=== PATIENT | female | born 1990 | race Caucasian/White ===

== ENCOUNTER 2017-10-03 22:53 | Inpatient (IN) | payer MEDICAID ==
[~2017-10-03] VITALS: Ht 152.4 cm; Wt 60.8 kg
--- NOTE | 2017-10-03 23:11 | NUR ---
PT BIB AMBULANCE. PT MOVED TO BED AND MADE COMFORTABLE. PT AAOX4 WITH C/O SEEING HALLUCINATIONS S/P EATING A THC BROWNIE. PT NOTED TO HAVE INVOLUNTARY SHAKING/JERKING.
--- NOTE | 2017-10-03 23:23 | NUR ---
6MG ADONSINE PUSHED RAPIDLY WITH DR STOUT AT BEDSIDE. PT'S HR CONVERTED FOR APPROXIMATELY 10 SECONDS THEN RETURNED TO 160'S.
--- NOTE | 2017-10-03 23:31 | NUR ---
12MG IVP ADENOSINE PUSHED RAPIDLY WITH PT CONVERTING TO NSR FOR APPROXIMATLY 40 SEC THEN PT RETURNED TO 130'S.
[2017-10-03 23:42] LABS: BASOPHIL % 0.6 % (0-2); PLATELET COUNT 228 x10^3mcL (130-400); RED CELL DISTRIBUTION WIDTH 12.6 % (11.5-14.5)
--- NOTE | 2017-10-03 23:45 | NUR ---
PT WITH EPISODE OF N/V WITH LARGE AMOUNT OF EMESIS.
[2017-10-03 23:46] LABS: CALCIUM 8.2 mg/dL (8.5-10.1); CARBON DIOXIDE 25.2 mmol/L (21-32); CHLORIDE SERUM 106 mmol/L (98-107); CREATININE SERUM 0.7 mg/dL (0.6-1.0); GFR1 > 60 mL/min; GLUCOSE SERUM 171 mg/dL (74-106); POTASSIUM SERUM 3.4 mmol/L (3.5-5.1); SODIUM SERUM 140 mmol/L (136-145)
[2017-10-04] LABS: ALBUMIN 3.6 g/dL (3.4-5.0); ALKALINE PHOSPHATASE 63 U/L (46-116); ALT/SGPT 22 U/L (14-59); AST/SGOT 13 U/L (15-37); BILIRUBIN TOTAL 0.2 mg/dL (0.20-1.00); FREE T4 1.05 ng/dL (0.76-1.46); TOTAL PROTEIN, SERUM 7.2 g/dL (6.4-8.2)
[2017-10-04 01:39] LABS: AMPHETAMINE QUAL UR NONE DETECTED (NEG <=1000)
--- NOTE | 2017-10-04 01:57 | NUR ---
PT RESTING IN BED WITH EYES CLOSED WITH NO SIGNS OF DISTRESS AT THIS TIME. VISITOR AT BEDSIDE.
--- NOTE | 2017-10-04 02:27 | NUR ---
RECEIVED REPORT FROM ELVIS VALDEZ. PT SLEEPING IN A POSITION OF COMFORT, EASY TO WAKE, RESP E/U, NO DISTRESS NOTED. PTS HR REMAINS IN THE 110'S. PT REMAINS CONNECTED TO CARDIORESP MONITORING AND CONNECTED TO DEFIB PADS. PT DENIES NEEDS AT THIS TIME.
--- NOTE | 2017-10-04 02:45 | NUR ---
PT AMBULATED TO AND FROM RESTROOM WITH THE ASSISTANCE OF THIS RN AND FRIEND WITH STEADY GAIT. PT RETURNED TO BED AND RECONNECTED TO CARDIORESP MONITORS WITHOUT INCIDENCE. PT STATES, "I FEEL MUCH BETTER".
[2017-10-04 04:45] LABS: microscopic required? NO
--- NOTE | 2017-10-04 04:46 | NUR ---
MED RESIDENT AT BEDSIDE UPDATING PT ON PLAN OF CARE.
[2017-10-04 04:59] LABS: urine erythrocyte NEGATIVE (NEGATIVE)
[2017-10-04 05:09] LABS: BASOPHIL % 0.4 % (0-2); PLATELET COUNT 233 x10^3mcL (130-400); RED CELL DISTRIBUTION WIDTH 13.1 % (11.5-14.5)
[2017-10-04 05:25] LABS: MAGNESIUM 2.6 mg/dL (1.8-2.4); PHOSPHOROUS 3.3 mg/dL (2.5-4.9)
[2017-10-04 05:26] LABS: CHOLESTEROL/HDL RATIO 2.6
[2017-10-04 05:30] LABS: CALCIUM 8.3 mg/dL (8.5-10.1); CHLORIDE SERUM 109 mmol/L (98-107); CREATININE SERUM 0.7 mg/dL (0.6-1.0); GFR1 > 60 mL/min; GLUCOSE SERUM 110 mg/dL (74-106); POTASSIUM SERUM 4.5 mmol/L (3.5-5.1); SODIUM SERUM 139 mmol/L (136-145)
--- NOTE | 2017-10-04 07:10 | NUR ---
REPORT CALLED TO JULIO VALDEZ TO ASSUME CARE OF PT POST TRANSFER TO TELE UNIT.
--- NOTE | 2017-10-04 08:05 | NUR ---
RECEIVED PATIENT FROM ED VIA GURNEY ACCOMPANIED BY ED NURSE AND FRIEND. PATIENT LETHARGIC, BUT OPENS EYES TO TACTILE STIMULI, UNABLE TO ANSWER QUESTIONS AT THIS TIME. PER PATIENTS FRIEND AT BEDSIDE, PATIENT ATE A BROWNIE THAT HAD MARIJUANA IN IT LAST NIGHT AND STARTED HAVING PALPITATIONS, ANXIETY AND HALLUCINATIONS. TELE # [id number] IN PLACED, NO SIGNS OF CHEST PAIN OR DISCOMFORT NOTED. IV TO LAC INTACT AND PATENT FLUSHED WELL WITH 10 ML NS. VS: TEMP 97.6 BP 98/62 MAP 74 HR 76 RR 18 O2 SAT 98% ON RA. PATIENT MADE COMFORTABLE IN BED, CALL LIGHT WITHIN REACH, BED IN LOW POSITION, BED ALARM ON. WILL CONTINUE TO MONITOR AND MAINTAIN SAFETY.
[2017-10-04 09:31] VITALS: BP 98/62
--- NOTE | 2017-10-04 10:08 | NUR ---
ROUNDS MADE- DR. MCKEON, RESIDENT TEAM, CHARGE NURSE AND PRIMARY NURSE AT BEDSIDE. PATIENT NEW ADMIT ARRIVED THIS AM- PATIENT WILL STAY TODAY AND ALLOW TO REST. WILL CONTINUE TO MONITOR AND MAINTAIN SAFETY.
--- NOTE | 2017-10-04 12:30 | NUR ---
ASSISTED PATIENT OUT OF BED TO RESTROOM, GAIT SLOW AND STEADY. NO BM NOTED. PATIENT ASSISTED BACK INTO BED AND MADE COMFORTABLE, FRIEND AT BEDSIDE. ALL QUESTIONS AND CONCERNS ADDRESSED. SAFETY PRECAUTIONS MAINTAINED. WILL MONITOR.
--- NOTE | 2017-10-04 12:46 | NUR ---
DR. HERNANDEZ AT BEDSIDE TO SPEAK WITH AND ASSESS PATIENT. ALL QUESTIONS AND CONCERNS ADDRESSED. WILL MONITOR.
--- NOTE | 2017-10-04 13:00 | NUR ---
DR. HERNANDEZ AT BEDSIDE TO SPEAK WITH PATIENT. PATIENT WANTS TO LEAVE NOW THAT HER HEART RATE IS BACK TO NORMAL. DR. HERNANDEZ EXPLAINED TO PATIENT THE RISKS OF LEAVING AGAINST MEDICAL ADVICE (AMA). PATIENT VERBALIZED UNDERSTANDING AND SIGNED AMA FORM. IV TO LAC REMOVED, CATH INTACT. ID BANDS REMOVED. TELE MONITOR REMOVED. INSTRUCTED PATIENT TO NOTIFY STAFF ONCE SHE IS DRESSED AND READY TO LEAVE.
[2017-10-04] MEDS ORDERED: COLACE100 MG PO (13:08)
[2017-10-04] MEDS ORDERED: NORCO1 TA2 PO (13:08)
--- NOTE | 2017-10-04 13:20 | NUR ---
LATE ENTRY: PATIENT IN STABLE CONDITION, ROOMATE FRANKY AT BEDSIDE. PATIENT SIGNED AMA FORM. PATIENT ASSISTED DOWN TO LOBBY, ALL PERSONAL BELONGINGS SENT HOME WITH PATIENT.
== END 2017-10-04 13:18 | disposition left against medical advice (07) | DRG 812 ==
LOC: ED 22:53 → DU 10-04 05:46
PROVIDERS: Emergency Medicine; ADMIT Student in an Organized Health Care Education/Training Program
DX: T40.7X1A Poisoning by cannabis (derivatives), accidental (unintentional), initial encounter (principal); I47.1 Supraventricular tachycardia; R11.10 Vomiting, unspecified; E87.6 Hypokalemia; E83.39 Other disorders of phosphorus metabolism; D64.9 Anemia, unspecified; Y92.009 Unspecified place in unspecified non-institutional (private) residence as the place of occurrence of the external cause
CPT/HCPCS: 83880; 84439; G0480; J0153; J2405; J3475; J7030